=== PATIENT | female | born 2005 | race Caucasian/White ===

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

== ENCOUNTER 2025-01-06 11:10 | Outpatient (REF) | payer MEDICAID, SELFPAY ==
[2025-01-07 11:53] LABS: Chlamydia Result Negative (Negative); GC Result Negative (Negative)
== END 2025-01-06 11:11 | disposition home or self-care (01) ==
LOC: NCHCN 11:10
PROVIDERS: PCP Family Medicine; Visit Provider Family Medicine
DX: Z00.00 Encounter for general adult medical examination without abnormal findings (principal)
CPT/HCPCS: 87491; 87591

== ENCOUNTER 2025-07-24 03:19 | Outpatient (CLI) | payer MEDICAID, SELFPAY ==
--- NOTE | 2025-07-24 05:30 | DI.RAD_ITS ---
Exam(s) XR WRIST RT COMPLETE EXAM: XR WRIST RT COMPLETE CLINICAL HISTORY: evaluate pathlogy,WRIST PAIN, MASS,M25.539. TECHNIQUE: 2D digital imaging was performed. COMPARISON: No exams were available for comparison FINDINGS: 3 views No evidence fracture or dislocation nor significant ulnar variance. Scaphoid and scapholunate distance are normal. Bone density normal. No osseous lesions nor erosions. IMPRESSION: No acute osseous findings in the wrist. DATA REPOSITORY: RADIATION DOSE DELIVERED:
--- NOTE | 2025-07-24 05:30 | DI.US_ITS ---
Exam(s) US SOFT TISSUE EXTREMITY EXAM: US SOFT TISSUE EXTREMITY CLINICAL HISTORY: evaluate patholgy,MASS OF WRIST,,R22.30,SUSPECT GANGLION CYST. TECHNIQUE: Ultrasound was performed using standard protocol. COMPARISON: CR XR WRIST RT COMPLETE from 07/24/2025 FINDINGS: Dedicated ultrasound examination the area clinical concern on the dorsal aspect of the right wrist was performed. There is an abnormal 10 x 15 x 3 mm fluid collection corresponding to the visible lump on the dorsal aspect of the wrist. This exhibits a single internal septation. This is most probably a ganglion cyst. The overlying extensor tendons do not exhibit tenosynovitis IMPRESSION: As above. Findings are consistent with a probable probable ganglion cyst DATA REPOSITORY:
== END 2025-07-24 03:39 ==
PROVIDERS: PCP Family Medicine; Visit Provider Nurse Practitioner Family
DX: R22.31 Localized swelling, mass and lump, right upper limb (principal); M25.531 Pain in right wrist
CPT/HCPCS: 76881; 73110

== ENCOUNTER 2025-10-27 18:27 | Outpatient (REF) | payer MEDICAID, SELFPAY ==
[2025-10-29 12:27] LABS: Bacterial Vaginosis (BV) Negative (Negative); Candida glabrata Negative (Negative); Candida species group Negative (Negative); Chlamydia Result Negative (Negative); GC Result Negative (Negative)
== END 2025-10-27 18:28 | disposition home or self-care (01) ==
LOC: LBN 18:27
PROVIDERS: PCP Family Medicine; Visit Provider Physician Assistant
DX: R21 Rash and other nonspecific skin eruption (principal); N76.0 Acute vaginitis
CPT/HCPCS: 81513; 87481; 87491; 87591; 87661